=== PATIENT | female | born 1990 | race African-American/Black ===

== ENCOUNTER 2020-09-01 21:40 | Emergency (ER) | payer MEDICAID ==
--- NOTE | 2020-09-01 22:41 | ER Document Report ---
ED Medical Screen (RME) - General Chief Complaint: Chest Pain Stated Complaint: SHORTNESS OF BREATH Time Seen by Provider: 09/01/20 22:34 Mode of Arrival: Ambulatory Information source: Patient Notes: 30-year-old female presents to ED for complaint of chest pain and back pain with a level of 5 out of 5. She states it started about 5 PM. She states she does have asthma is very short of breath has not had any fevers or congestion but she does have tight wheezes. She states she been using her albuterol nebulizer on and off today has used maybe 3 or 4 times today and used it yesterday. She states last time she used nebulizer was about 2 hours ago. She does have inspiratory and expiratory wheezes. I will give her a shot of Solu-Medrol in the waiting room as well as get an chest x-ray EKG blood work. She denies all the Covid symptoms except for the shortness of breath but she has a history of asthma and is wheezing. I have greeted and performed a rapid initial assessment of this patient. A comprehensive ED assessment and evaluation of the patient, analysis of test results and completion of medical decision making process will be conducted by an additional ED providers. Physical Exam - Vital signs Vitals: Temp Pulse Resp BP Pulse Ox 97.9 F 101 H 22 H 126/78 H 100 09/01/20 22:00 09/01/20 22:00 09/01/20 22:00 09/01/20 22:00 09/01/20 22:00 Course - Vital Signs Vital signs: Temp Pulse Resp BP Pulse Ox 97.9 F 101 H 22 H 126/78 H 100 09/01/20 22:00 09/01/20 22:00 09/01/20 22:00 09/01/20 22:00 09/01/20 22:00
[2020-09-01] MEDS ORDERED: METHYLPREDNISOLONE INJ 125 MG/2 ML SDV IM ONE (22:44)
[2020-09-01] MEDS ORDERED: ALBUTEROL SULFATE HFA (90 MCG/PUFF) 8 GM MDI (1 MDI/ER DISP) IH ONE (22:44)
[2020-09-01 23:27] LABS: ABSOLUTE BASOPHILS # (AUTO) 0.1 10^3/uL (0.0-0.2); ABSOLUTE EOSINOPHILS # (AUTO) 0.7 10^3/uL (0.0-0.6); ABSOLUTE LYMPHOCYTES (AUTO) 0.8 10^3/uL (0.5-4.7); ABSOLUTE NEUT (AUTO) 5.9 10^3/uL (1.7-8.2); BASOPHILS % (AUTO) 1.7 % (0-2); HEMATOCRIT 27.9 % (36.0-47.0); HEMOGLOBIN 8.3 g/dL (12.0-15.5); LYMPHOCYTES % (AUTO) 10.7 % (13-45); MEAN CORPUSCULAR HEMOGLOBIN 19.1 pg (27.0-33.4); MEAN CORPUSCULAR HGB CONC 29.6 g/dL (32.0-36.0); MONOCYTES % (AUTO) 0.5 % (3-13); PLATELET COUNT 563 10^3/uL (150-450); RED BLOOD COUNT 4.32 10^6/uL (3.72-5.28); RED CELL DISTRIBUTION WIDTH 23.7 % (11.5-14.0); SEGMENTED NEUTROPHILS % (AUTO) 78.1 % (42-78); TOTAL CELLS COUNTED % (AUTO) 100 %; WHITE BLOOD COUNT 7.6 10^3/uL (4.0-10.5)
[2020-09-01 23:36] LABS: ALBUMIN 4.8 g/dL (3.5-5.0); ALKALINE PHOSPHATASE 79 U/L (38-126); ANION GAP 11 (5-19); ASPARTATE AMINO TRANSFERASE 23 U/L (14-36); BILIRUBIN,DIRECT 0.1 mg/dL (0.0-0.4); BILIRUBIN,TOTAL 0.3 mg/dL (0.2-1.3); BLOOD UREA NITROGEN 12 mg/dL (7-20); CALCIUM 9.5 mg/dL (8.4-10.2); CARBON DIOXIDE 21 mmol/L (22-30); CHLORIDE 106 mmol/L (98-107); GLUCOSE 91 mg/dL (75-110); POTASSIUM 4.6 mmol/L (3.6-5.0); TOTAL PROTEIN 8.2 g/dL (6.3-8.2)
--- NOTE | 2020-09-01 23:44 | RADIOLOGY REPORT (SQ) ---
CLINICAL HISTORY: sob asthma wheezing chest pain COMPARISON: None. TECHNIQUE: XR CHEST 2 VIEWS 09/01/2020 10:42 PM MEDIA SPECIALIST FINDINGS: Cardiac silhouette is normal in size. Lungs are clear without consolidation, atelectasis, mass or edema. There is no pleural effusion. There is no pneumothorax. There are no acute osseous findings. IMPRESSION: Clear lungs.
[2020-09-01 23:54] LABS: MEAN CORPUSCULAR VOLUME 65 fl (80-97)
[2020-09-01 23:59] LABS: ANISOCYTOSIS 3+; BURR CELLS SLIGHT; HYPOCHROMASIA 3+; OVALOCYTES 3+; POIKILOCYTOSIS 3+; SCHISTOCYTES SLIGHT; TEAR DROP CELLS 1+; TOXIC GRANULATION SLIGHT
[2020-09-02] LABS: PLATELET COMMENT ADEQUATE
[2020-09-02] MEDS ORDERED: IPRATROPIUM/ALBUTEROL 0.5-2.5 MG/3 ML AMPUL NEB ONE (01:11)
--- NOTE | 2020-09-02 01:15 | ER Document Report ---
ED Respiratory Problem - General Chief Complaint: Asthma Exacerbation Stated Complaint: SHORTNESS OF BREATH Time Seen by Provider: 09/01/20 22:34 Mode of Arrival: Ambulatory Notes: Patient is a 30-year-old female with a history of asthma that comes emergency department for chief complaint of wheezing, cough, tightness in her chest. Symptoms have been worse over the past 2 days. She states normally her asthma is well controlled with nebulizer and rescue inhaler, however she has needed her medication every 4 hours and she still had worsening wheezing so she came in. She denies fever/chills, sore throat, productive cough, nausea/vomiting, . She has a history of anemia and was formally on iron, she denies smoking, she denies any medical history otherwise. - Related Data Allergies/Adverse Reactions: morphine Allergy (Verified 09/01/20 22:45) shrimp Allergy (Verified 09/01/20 22:45) Home Medications: Albuterol Past Medical History - General Information source: Patient - Social History Smoking Status: Never Smoker Frequency of alcohol use: None Drug Abuse: None Lives with: Family Family History: Reviewed & Not Pertinent Patient has homicidal ideation: No Pulmonary Medical History: Reports: Hx Asthma Surgical Hx: Negative - Immunizations Immunizations up to date: Yes Hx Diphtheria, Pertussis, Tetanus Vaccination: Yes Review of Systems - Review of Systems Constitutional: No symptoms reported EENT: No symptoms reported Cardiovascular: No symptoms reported Respiratory: See HPI Gastrointestinal: No symptoms reported Genitourinary: No symptoms reported Female Genitourinary: No symptoms reported Musculoskeletal: No symptoms reported Skin: No symptoms reported Hematologic/Lymphatic: No symptoms reported Neurological/Psychological: No symptoms reported Physical Exam - Vital signs Vitals: Temp Pulse Resp BP Pulse Ox 97.9 F 101 H 22 H 126/78 H 100 09/01/20 22:00 09/01/20 22:00 09/01/20 22:00 09/01/20 22:00 09/01/20 22:00 - Notes Notes: GENERAL: Alert, interacts well. No acute distress. HEAD: Normocephalic, atraumatic. EYES: Pupils equal, round, and reactive to light. Extraocular movements intact. ENT: Oral mucosa moist, tongue midline. Oropharynx unremarkable. Airway patent. Nares patent, sinuses non-tender, ear canals unremarkable, TM's intact. NECK: Full range of motion. Supple. Trachea midline. No lymphadenopathy. LUNGS: Good air movement is heard bilaterally but there are end expiratory wheezes heard bilaterally as well. No rales or rhonchi. No tachypnea or labored breathing. No signs of distress. HEART: Regular rate and rhythm. No murmur ABDOMEN: Soft, non-tender. Non-distended. EXTREMITIES: Moves all 4 extremities spontaneously. No edema, normal radial and dorsalis pedis pulses bilaterally. No cyanosis. BACK: no cervical, thoracic, lumbar midline tenderness. No saddle anesthesia, normal distal neurovascular exam. Moves all extremities in full range of motion. NEUROLOGICAL: Alert and oriented x3. Normal speech. Cranial nerves II through XII grossly intact. Strength 5/5 in all extremities. PSYCH: Normal affect, normal mood. SKIN: Warm, dry, normal turgor. No rashes or lesions noted. Course - Re-evaluation Re-evalutation: Initially patient with expiratory wheezes, however after DuoNeb this complete resolved. On reevaluation she has no complaints. Chest x-ray reviewed and unremarkable, EKG unremarkable, laboratory work-up from triage reviewed and shows anemia but otherwise unremarkable. Patient admits to heavy menstrual cycles, history of anemia, she is requesting I place her back on iron with a prescription. This was provided. Patient has no sick symptoms, evaluation is consistent with asthma exacerbation, discussed COVID-19 testing but this was deferred. Patient will be provided with treatment for asthma exacerbation, discussed primary care follow-up and return precautions. Patient states appreciation and agreement. Stable and well-appearing at time of discharge. - Vital Signs Vital signs: Temp Pulse Resp BP Pulse Ox 98.6 F 96 18 126/81 H 97 09/02/20 02:26 09/02/20 02:26 09/02/20 02:26 09/02/20 02:26 09/02/20 02:26 - Laboratory Result Diagrams: 09/01/20 23:00 09/01/20 23:00 Laboratory results interpreted by me: 09/01/20 09/01/20 23:00 23:00 Hgb 8.3 L Hct 27.9 L MCV 65 L MCH 19.1 L MCHC 29.6 L RDW 23.7 H Plt Count 563 H Lymph % (Auto) 10.7 L Moody % (Auto) 0.5 L Eos % (Auto) 9.0 H Absolute Monos (auto) 0.0 L Absolute Eos (auto) 0.7 H Seg Neutrophils % 78.1 H Carbon Dioxide 21 L - EKG Interpretation by Me Additional EKG results interpreted by me: EKG shows sinus rhythm at a rate of 86, QTc 431, normal axis, no T wave inversions or ST segment changes in consecutive leads Discharge - Discharge Clinical Impression: Wheezing Asthma exacerbation Qualifiers: Asthma severity: mild Asthma persistence: intermittent Qualified Code(s): J45.21 - Mild intermittent asthma with (acute) exacerbation Anemia Qualifiers: Anemia type: iron deficiency Iron deficiency anemia type: chronic blood loss Qu alified Code(s): D50.0 - Iron deficiency anemia secondary to blood loss (chronic) Condition: Stable Disposition: HOME, SELF-CARE Additional Instructions: Your evaluation is consistent with an asthma exacerbation. You are also noted to have anemia, probably from iron deficiency. Take the prednisone as prescri bed, use the albuterol inhaler and your nebulizer if needed, take the iron as prescribed. Follow-up with primary care for additional management. Return if you worsen including difficulty breathing, spiking fever, passing out, or any other concerning or worsening symptoms. Prescriptions: Prednisone [Deltasone 20 mg Tablet] 3 tab PO DAILY 5 Days #15 tablet Ferrous Sulfate [Feosol 325 mg Tablet] 325 mg PO DAILY #30 tab Albuterol Sulfate [Proair HFA Inhalation Aerosol 8.5 gm MDI] 2 puff IH Q4H PRN #1 mdi PRN Reason: Forms: Return to Work
[2020-09-02 02:27] VITALS: BP 126/81
--- NOTE | 2020-09-02 06:36 | EKG REPORT ---
SEVERITY:- NORMAL ECG - SINUS RHYTHM : Confirmed by: Willian Allison MD 02-Sep-2020 06:35:08
== END 2020-09-02 02:34 | disposition home or self-care (01) ==
LOC: ER 21:40
DX: J45.21 Mild intermittent asthma with (acute) exacerbation (principal); D50.0 Iron deficiency anemia secondary to blood loss (chronic); R05 Cough; R07.89 Other chest pain; Z79.899 Other long term (current) drug therapy; Z88.6 Allergy status to analgesic agent; Z88.5 Allergy status to narcotic agent; Z91.013 Allergy to seafood
CPT/HCPCS: 93005; 94640; 99285; 96372; 36415; 85025; 80053; 84484; 71046; 93010; J2930; J3490